=== PATIENT | male | born 1945 | race Caucasian/White ===

== ENCOUNTER 2022-01-19 20:16 | Emergency (ER) | payer SELFPAY ==
[~2022-01-19] VITALS: Ht 185.4 cm; Wt 79.0 kg
[2022-01-19 20:21] VITALS: BP 168/84
== END 2022-01-20 00:38 | disposition left against medical advice (07) ==
LOC: ER 20:16
DX: Z53.21 Procedure and treatment not carried out due to patient leaving prior to being seen by health care provider (principal)
CPT/HCPCS: 82962; 93005